=== PATIENT | male | born 1940 | race Caucasian/White ===

== ENCOUNTER 2018-03-30 11:55 | Outpatient (CLI) | payer MEDICARE ==
--- NOTE | 2018-03-30 13:50 | RAD ---
PA AND LATERAL CHEST: HISTORY: Cough. COMPARISON: 04/29/2008 study. FINDINGS: Heart size and mediastinum are within normal limits. The lungs are clear of infiltrates. Arthritic changes of the spine are present. IMPRESSION: No active intrathoracic disease. POS: [facility]
== END 2018-03-30 11:56 | disposition home or self-care (01) ==
LOC: SCSRAD 11:55
PROVIDERS: ATTEND Family Medicine
DX: R05 Cough (principal)
CPT/HCPCS: 71046

== ENCOUNTER 2018-06-14 14:15 | Emergency (ER) | payer MEDICARE ==
[2018-06-14] MEDS ORDERED: Morphine 4 MG/ML VIAL ONE ×2 (14:33→14:55)
[2018-06-14] MEDS ORDERED: Adacel (T-DAP) 0.5 ML SYRINGE ONE ×2 (14:33→14:55)
[2018-06-14] MEDS ORDERED: Morphine 2 MG/ML SYRINGE ONE (14:55)
--- NOTE | 2018-06-14 14:56 | RAD ---
LEFT HAND 3 VIEWS: Date: 06/14/18 INDICATION: Table saw accident where left ring finger was amputated below the knuckle and the pad of the thumb wa s removed. The patient arrived with a pressure bandage. COMPARISON: Prior radiographs of the left hand dated 01/26/17. FINDINGS: There is a comminuted fracture involving the middle phalangeal base of the left ring finger. There is also a nondisplaced fracture involving the left ring finger proximal interphalangeal head. There is maceration of the soft tissues near this region, likely related to the patient's table saw injury. Th e previously seen distal tuft of the left ring finger and left index finger have healed. There is sca ttered osteoarthrosis of the left hand. IMPRESSION: 1. 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 There is a comminuted fracture involving the base of the left ring finger middle phalanx, as well as the left ring finger proximal p halangeal head. 2. Partial tuft injury involving the left thumb, left index finger, and left ring finger are stable. 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 POS: [facility]
[2018-06-14 15:49] LABS: #Eosinphils 0.1 thou/uL (0.0-0.7); #Lymphocytes 1.3 thou/uL (1.20-3.40); #Monocytes 1.2 thou/uL (0.11-0.59); #Neutrophils 6.5 thou/uL (1.40-6.50); %Basophils 0.1 % (0.0-1.0); %Eosinophils 0.9 % (0.0-10.0); %Lymphocytes 14.4 % (21.0-51.0); %Monocytes 12.8 % (0.0-10.0); %Neutrophils 71.8 % (42.0-75.0); Mean Corpuscular HGB CONC 33.9 g/dL (32.0-36.0); Mean Corpuscular Volume 91.5 fL (78.0-98.0); Mean Platelet Volume 9.4 fL (7.4-10.4); Platelet Count 219 thou/uL (130-400); RBC Distribution Width 12.6 % (11.5-14.5); Red Blood Cell (RBC) Count 5.16 mill/uL (4.70-6.10)
[2018-06-14 15:55] LABS: INR-International Normal Ratio 1.1; PTT 30.7 SEC (22.9-36.1); Prothrombin Time 14.2 SEC (12.0-14.7)
[2018-06-14 16:13] LABS: ALT (SGPT) 29 U/L (8-55); AST (SGOT) 21 U/L (5-34); Albumin 4.1 g/dL (3.4-4.8); Alkaline Phosphatase 56 U/L (40-150); Anion Gap 14 mmol/L (10-20); BUN (Urea Nitrogen) 14 mg/dL (8.4-25.7); Bilirubin, Total 0.7 mg/dL (0.2-1.2); Calc. Creatinine Clearance 0 mL/min (70-130); Calcium 9.5 mg/dL (7.8-10.44); Carbon Dioxide 20 mmol/L (23-31); Chloride 107 mmol/L (98-107); Estimated GFR-MDRD 77; Globulin 3.4 g/dL (2.4-3.5); Glucose 110 mg/dL (83-110); Potassium 3.8 mmol/L (3.5-5.1); Protein, Total 7.5 g/dL (5.8-8.1); Sodium 137 mmol/L (136-145)
--- NOTE | 2018-06-14 16:44 | RAD ---
AP CHEST: History: 78-year-old with table saw accident, left hand. Date: 06-14-18 Comparison: 03-30-18 FINDINGS: AP chest demonstrates the lungs to be well aerated. No evidence of active intrathoracic disease seen. No evidence of effusions, pneumonia, or pneumothorax seen. IMPRESSION: Unremarkable AP chest. POS: [facility]
== END 2018-06-14 18:25 | disposition short-term general hospital (02) ==
LOC: ERS 14:15
DX: S68.125A Partial traumatic metacarpophalangeal amputation of left ring finger, initial encounter (principal); I10 Essential (primary) hypertension; Z87.891 Personal history of nicotine dependence; Z79.82 Long term (current) use of aspirin; Z79.899 Other long term (current) drug therapy; W31.2XXA Contact with powered woodworking and forming machines, initial encounter
CPT/HCPCS: 36415; 71045; 80053; 85025; 85610; 85730; 86850; 86900; 86901; 90471; 90715; 93005; 96365; 96375; J0690; J2270